=== PATIENT | female | born 1960 | race Caucasian/White ===

== ENCOUNTER 2017-10-31 17:10 | Inpatient (IN) | payer BC ==
[~2017-10-31] VITALS: Ht 170.2 cm; Wt 50.1 kg
[~2017-10-31 17:10] MED LIST: Cipro PO; Tylenol Regular Stre PO; oxyCODONE PO
[2017-10-31 17:54] LABS: HEMATOCRIT 38.4 % (36.0-46.0); HEMOGLOBIN 13.2 G/DL (11.9-15.5); MCH 30.3 PG (29.0-34.0); MCHC 34.4 G/DL (30.0-36.0); MCV 88.1 FL (83-99); PLATELET COUNT 310 K/uL (156-360); RBC DIS.WIDTH-CV 13.5 % (11.8-14.6); RBC DIS.WIDTH-SD 43.7 % (39-53); RED BLOOD COUNT 4.36 M/uL (3.80-5.20); WHITE BLOOD COUNT 14.2 K/uL (4.1-10.2)
[2017-10-31 18:05] LABS: CHLORIDE 95 mEq/L (99-109); POTASSIUM 3.9 mEq/L (3.7-5.4); SODIUM 133 mEq/L (136-147)
[2017-10-31 18:06] LABS: GLUCOSE 104 mg/dL (70-99)
[2017-10-31 18:10] LABS: CREATININE 0.5 mg/dL (0.6-1.3); GFR ESTIMATE (CALCULATED) > 59 mL/min/
[2017-10-31 18:11] LABS: UREA NITROGEN (BUN) 7 mg/dL (9-23)
[2017-10-31 18:18] LABS: TROP-I INTERPRETATION NEGATIVE; TROPONIN-I < 0.01 ng/mL (0.0-0.30)
[2017-10-31] MEDS ORDERED: VENTOLIN HFA18 GM IH (23:32)
[2017-10-31] MEDS ORDERED: ADVIL200 MG PO (23:33)
[2017-10-31] MEDS ORDERED: METHADONE1 MG/1 ML PO (23:37)
[2017-11-01 02:00] LABS: BASE EXCESS 6.4 mEq/L (-3 to +3); BICARBONATE 32.3 mEq/L (22-26); CARBOXY HGB 2.2 % (0-5); COMMENTS - BLOOD GASES C+; DEVICE NC; METHEMOGLOBIN 0.9 % (0-1.5); O2 FLOW 5 L/MIN; PCO2 51 mm Hg (35-45); PO2 67 mm Hg (80-100); SITE RR; pH 7.41 (7.35-7.45)
[2017-11-01 10:31] LABS: HEMOGLOBIN 12.6 G/DL (11.9-15.5); MCH 29.8 PG (29.0-34.0); MCHC 33.2 G/DL (30.0-36.0); MCV 89.8 FL (83-99); PLATELET COUNT 323 K/uL (156-360); RBC DIS.WIDTH-SD 45.7 % (39-53); RED BLOOD COUNT 4.23 M/uL (3.80-5.20); WHITE BLOOD COUNT 11.3 K/uL (4.1-10.2)
[2017-11-01 10:39] LABS: CHLORIDE 98 mEq/L (99-109); SODIUM 133 mEq/L (136-147)
[2017-11-01 10:43] LABS: GLUCOSE 240 mg/dL (70-99); POTASSIUM 4.8 mEq/L (3.7-5.4)
[2017-11-01 10:45] LABS: CREATININE 0.7 mg/dL (0.6-1.3); GFR ESTIMATE (CALCULATED) > 59 mL/min/
[2017-11-01 10:46] LABS: UREA NITROGEN (BUN) 12 mg/dL (9-23)
[2017-11-01 17:12] VITALS: BP 155/87
[2017-11-01 20:21] VITALS: BP 166/87
[2017-11-01 23:46] VITALS: BP 166/93
[2017-11-02 05:45] LABS: HEMATOCRIT 36.6 % (36.0-46.0); HEMOGLOBIN 12.1 G/DL (11.9-15.5); MCH 29.7 PG (29.0-34.0); MCHC 33.1 G/DL (30.0-36.0); MCV 89.7 FL (83-99); PLATELET COUNT 330 K/uL (156-360); RBC DIS.WIDTH-SD 45.9 % (39-53); RED BLOOD COUNT 4.08 M/uL (3.80-5.20); WHITE BLOOD COUNT 19.1 K/uL (4.1-10.2)
[2017-11-02 05:56] LABS: CHLORIDE 98 MEQ/L (99-109); CREATININE 0.5 MG/DL (0.6-1.3); GFR ESTIMATE (CALCULATED) > 59 mL/min/; GLUCOSE 180 mg/dL (70-99); POTASSIUM 5.2 MEQ/L (3.7-5.4); SODIUM 136 MEQ/L (136-147); UREA NITROGEN (BUN) 12 mg/dL (9-23)
[2017-11-02 08:00] VITALS: BP 182/95
[2017-11-02 11:56] VITALS: BP 151/84
[2017-11-02 16:00] VITALS: BP 166/89
[2017-11-02 20:35] VITALS: BP 158/92
[2017-11-02 23:48] VITALS: BP 168/89
[2017-11-03 03:46] VITALS: BP 161/89
[2017-11-03 06:15] LABS: HEMATOCRIT 37.1 % (36.0-46.0); HEMOGLOBIN 12.4 G/DL (11.9-15.5); MCH 29.9 PG (29.0-34.0); MCHC 33.4 G/DL (30.0-36.0); MCV 89.4 FL (83-99); PLATELET COUNT 328 K/uL (156-360); RBC DIS.WIDTH-CV 14.1 % (11.8-14.6); RBC DIS.WIDTH-SD 46.1 % (39-53); RED BLOOD COUNT 4.15 M/uL (3.80-5.20); WHITE BLOOD COUNT 17.3 K/uL (4.1-10.2)
[2017-11-03 06:22] LABS: CHLORIDE 92 MEQ/L (99-109); CREATININE 0.6 MG/DL (0.6-1.3); GFR ESTIMATE (CALCULATED) > 59 mL/min/; GLUCOSE 201 mg/dL (70-99); POTASSIUM 4.9 MEQ/L (3.7-5.4); SODIUM 134 MEQ/L (136-147); UREA NITROGEN (BUN) 16 mg/dL (9-23)
[2017-11-03 07:44] VITALS: BP 161/82
[2017-11-03 11:34] VITALS: BP 160/79
[2017-11-03 16:27] VITALS: BP 157/80
[2017-11-03 20:47] VITALS: BP 168/90
[2017-11-03 23:48] VITALS: BP 174/93
[2017-11-04 03:32] VITALS: BP 176/98
[2017-11-04 06:43] LABS: CHLORIDE 93 MEQ/L (99-109); CREATININE 0.5 MG/DL (0.6-1.3); GFR ESTIMATE (CALCULATED) > 59 mL/min/; POTASSIUM 4.8 MEQ/L (3.7-5.4); SODIUM 136 MEQ/L (136-147); UREA NITROGEN (BUN) 14 mg/dL (9-23)
[2017-11-04 06:48] LABS: GLUCOSE 83 mg/dL (70-99)
[2017-11-04 07:13] LABS: HEMATOCRIT 38.7 % (36.0-46.0); MCH 30.2 PG (29.0-34.0); MCHC 33.6 G/DL (30.0-36.0); PLATELET COUNT 371 K/uL (156-360); RBC DIS.WIDTH-CV 14.5 % (11.8-14.6); RBC DIS.WIDTH-SD 47.8 % (39-53)
[2017-11-04 07:27] VITALS: BP 167/94
[2017-11-04 11:05] VITALS: BP 158/93
[2017-11-04 13:04] LABS: HEMOGLOBIN A1c (GLYCOHEMOGLOB) 6.2 % (Below 5.7)
[2017-11-04 15:20] VITALS: BP 155/90
[2017-11-04 19:40] VITALS: BP 143/88
[2017-11-04 23:29] VITALS: BP 146/67
[2017-11-05 04:12] VITALS: BP 150/92
[2017-11-05 06:41] LABS: HEMATOCRIT 40.9 % (36.0-46.0); HEMOGLOBIN 13.5 G/DL (11.9-15.5); MCH 29.5 PG (29.0-34.0); MCV 89.5 FL (83-99); PLATELET COUNT 331 K/uL (156-360); RBC DIS.WIDTH-CV 14.6 % (11.8-14.6); RBC DIS.WIDTH-SD 47.5 % (39-53); RED BLOOD COUNT 4.57 M/uL (3.80-5.20); WHITE BLOOD COUNT 15.2 K/uL (4.1-10.2)
[2017-11-05 08:38] VITALS: BP 142/87
[2017-11-05 12:18] VITALS: BP 149/86
[2017-11-05 16:40] VITALS: BP 152/80
[2017-11-05 20:00] VITALS: BP 134/86
[2017-11-05 23:37] VITALS: BP 141/89
[2017-11-06 04:01] VITALS: BP 138/88
[2017-11-06 08:20] VITALS: BP 107/69
[2017-11-06 12:39] VITALS: BP 108/70
[2017-11-06 15:55] VITALS: BP 107/70
[2017-11-06 20:03] VITALS: BP 116/76
[2017-11-06 23:52] VITALS: BP 130/72
[2017-11-07 04:25] VITALS: BP 121/78
[2017-11-07 08:53] VITALS: BP 126/79
[2017-11-07] MEDS ORDERED: SPIRIVA RESPIMAT4 GM IH (11:14)
[2017-11-07] MEDS ORDERED: NICOTINE PATCH1 EAC2 TD (11:14)
[2017-11-07] MEDS ORDERED: PREDNISONE20 MG PO (11:14)
[2017-11-07 12:22] VITALS: BP 121/72
== END 2017-11-07 13:12 | disposition home or self-care (01) | DRG 193 ==
LOC: EME 17:10 → 4SOUTH 11-01 02:07 → EDOF 11-01 02:07 → ENRESERV 11-01 02:09 → 4SOUTH 11-01 16:36
PROVIDERS: Hospitalist; Physician Assistant
DX: J18.0 Bronchopneumonia, unspecified organism (principal); J96.21 Acute and chronic respiratory failure with hypoxia; J44.0 Chronic obstructive pulmonary disease with (acute) lower respiratory infection; J96.22 Acute and chronic respiratory failure with hypercapnia; F11.20 Opioid dependence, uncomplicated; J44.1 Chronic obstructive pulmonary disease with (acute) exacerbation; G89.4 Chronic pain syndrome; E87.1 Hypo-osmolality and hyponatremia; E87.2 Acidosis; J98.11 Atelectasis; I10 Essential (primary) hypertension; K21.9 Gastro-esophageal reflux disease without esophagitis; G40.909 Epilepsy, unspecified, not intractable, without status epilepticus; F17.200 Nicotine dependence, unspecified, uncomplicated; Z89.029 Acquired absence of unspecified finger(s)
CPT/HCPCS: 36600; 71045; 71046; 71275; 80048; 81003; 82803; 83036; 83605; 84484; 85027; 87040; 87070; 87106; 87205; 93005; 93971; 94640; 94640 76; 94644; 94760; 94799; 99202; 99281; 99285; J0295; J0456; J0696; J1100; J1644; J2920; J2930; J7030; J7050; J7512